=== PATIENT | female | born 1950 | race Caucasian/White ===

== ENCOUNTER 2017-04-25 19:11 | Emergency (ER) | payer MEDICARE, OTHER ==
[~2017-04-25] VITALS: Ht 167.6 cm; Wt 60.9 kg
[2017-04-25 19:26] VITALS: BP 122/64; PULSE 91; RESP 18; O2SAT 99
--- NOTE | 2017-04-25 19:54 | ED.REPORT ---
HPI-Extremity Problem Lower Date of Service Apr 25, 2017 ED Provider: Will Cotto MD Patient is a 66 year old female who presents to the ED via EMS due to a fall onset two hours ago. Associated symptoms include left ankle pain and swelling. The patient reports that she tried jumping over a ditch and landed on her foot wrong. She rates the pain as a 2/10 currently. Nursing Notes Stated Complaint: LEFT ANKLE PAIN AND SWELLING Chief Complaint: Extremity Trauma Nursing Notes Reviewed: Yes Allergies: Coded Allergies: iodine (Verified Allergy, Unknown, 04/25/17) Uncoded Allergies: ERYTHROMYCIN (Allergy, Unknown, 04/25/17) PENICILLIN (Allergy, Unknown, 04/25/17) SULFA DRUGS (Allergy, Unknown, 04/25/17) TAMAFLU (Allergy, Unknown, 04/25/17) General Time Seen by MD: 19:54 Chief Complaint Ankle injury left Hx Obtained From: Patient Arrived By: Ambulance Onset Occurred: Just prior to arrival Symptom Duration: Since onset Caused by: Fall on ground Location: : Ankle left Quality: Painful Severity: Current: Pain level 2 out of 10 Exacerbated by: Movement Similar Sx Previous: No Past Medical History Smoking History Unknown if Ever Smoker Social History Other Social History: Good social support Ambulatory Status Independent Review of Systems Musculoskeletal: Reports: Extremity pain (left ankle), Extremity swelling Skin: Denies Itching, Denies Rash Neurologic: Reports: Problem walking Complete sys rev & neg: except as marked. Physical Exam Initial Vital Signs Vital Signs (First) Date Time Temp Pulse Resp B/P Pulse Ox O2 Delivery O2 Flow Rate FiO2 04/25/17 19:26 36.6 91 18 122/64 99 Room Air Initial VS: Reviewed Lower Extremity / Pelvis / MS: Atraumatic, Neurologic intact, Vascular intact no tenderness over the proximal fibula Ankle / Foot: Neurologic intact, Vascular intact swelling and bruising over the lateral malleolus pulses intact unstable General/Constitutional: Awake, Alert Skin: Atraumatic, Color NL, No rash, Warm, Dry Neurologic: Oriented X3, Speech NL, No motor deficits, No sensory deficits Head / Eyes: Atraumatic, Normocephalic, PERRL, EOMI Psychiatric: Affect NL, Mood NL Interpretation & Diagnostics X-Ray Interpretation Xray Interpretation: IMPRESSION: Fractures across the medial and lateral malleolus, overlying soft tissue swelling. Dictated by: Marcin Beard M.D. on 04/25/2017 at 19:58 Approved by: Marcin Beard M.D. on 04/25/2017 at 19:59 X-Ray Ordered: Ankle left Interpretation / Wet Read by: Interpret - Radiologist Procedures Splint Application - Fx Mgt Time: 20:33 Procedure Performed by: Nurse Precise Anatomic Location: left ankle Type of Immobilization: Sugar tong Definitive Fracture Care: Pain control, Splint Post-Procedure / Complications: Cap refill normal, Post splint vascular nl, Post splint neuro nl, Condition improved, Tolerated procedure well, Patient stable Re-Eval/Medical Decision Re-Evaluation/Progress #1: Time of Eval: 20:18 Re-Evaluation/Progress Note: Discussed X-ray results and plan for splint Re-Evaluation/Progress #2: Time of Eval: 20:57 Re-Evaluation/Progress Note: Discussed plan for discharge. Patient understands and agrees to plan. All questions were addressed. Consultation : Referral / Consult Name: Mello Ozuna MD Consulted With: Orthopedic Call Returned at: 20:56 Knocker Out: Will see in office, Agrees with eval, Agrees with plan Counseled Regarding: Diagnosis, Lab results, Need for follow-up, When/why to return to ED Discharge & Departure Impression: Primary Impression: Fracture of malleolus of left ankle Disposition: Home Discharge Condition All VS Reviewed: Yes Condition: Stable Patient Instructions: Splint Care (ED), Crutch Instructions (ED) Additional Instructions: We saw you today for a left ankle injury, exam and x-rays show a fracture that may require surgery. Keep the splint on, no weight bearing on left ankle. Follow up with orthopedics ingrid, call tomorrow. return to ED for severe pain or swelling in leg. Referrals: Mello Ozuna MD Attestation Portions of this note were transcribed by Cindy Kong. I, Dr. Cotto personally performed the history, physical exam and medical decision-making; I reviewed and confirmed the accuracy of the information in the transcribed note. Signed by: Jayla Sahni, 04/25/17 copies to: Mello Ozuna MD, Donald L MD Apr 25, 2017 19:54 Peggy Kong Apr 25, 2017 19:57
--- NOTE | 2017-04-25 20:01 | DRSVH ---
PROCEDURE: X-RAY LEFT ANKLE, MINIMUM THREE VIEWS ([id number]) INDICATIONS: fall with pain/swelling TECHNIQUE: 3 views of the ankle were acquired. COMPARISON: None. FINDINGS: Bones: No dislocations. Ankle mortise is normally aligned. No suspicious bony lesions. There is a bimalleolar fracture with transverse fractures across the medial and lateral malleolus with overlyin g soft tissue swelling most prominent laterally. Soft tissues: No tibiotalar joint effusion. Achilles tendon appears normal. IMPRESSION: Fractures across the medial and lateral malleolus, overlying soft tissue swelling. Dictated by: Marcin Beard M.D. on 04/25/2017 at 19:58 Approved by: Marcin Beard M.D. on 04/25/2017 at 19:59
[2017-04-25] MEDS ORDERED: _HYDROcodone/APAP 5-325 mg Tablet PO PRN (20:25)
[2017-04-25 20:57] VITALS: BP 124/66; PULSE 86; RESP 18; O2SAT 99
== END 2017-04-25 21:09 | disposition home or self-care (01) ==
LOC: SED 19:11 → EDBD 19:11 → SED 21:09
DX: S82.842A Displaced bimalleolar fracture of left lower leg, initial encounter for closed fracture (principal); W17.89XA Other fall from one level to another, initial encounter; Y93.01 Activity, walking, marching and hiking; Y92.828 Other wilderness area as the place of occurrence of the external cause; Y99.8 Other external cause status; Z88.0 Allergy status to penicillin; Z88.1 Allergy status to other antibiotic agents; Z88.2 Allergy status to sulfonamides